=== PATIENT | female | born 1980 | race Caucasian/White ===

== ENCOUNTER 2017-01-21 12:01 | Emergency (ER) | payer MEDICAID, SELFPAY | END 2017-01-21 12:22 | disposition home or self-care (01) | PROVIDERS: Emergency Provider Nurse Practitioner Family; Family Provider Pediatrics; Visit Provider Nurse Practitioner Family | DX: K13.0 Diseases of lips (principal); Z79.3 Long term (current) use of hormonal contraceptives ==

== ENCOUNTER → 2017-01-27 | Outpatient (CLI) | payer MEDICAID, SELFPAY | PROVIDERS: Visit Provider Nurse Practitioner Obstetrics & Gynecology | DX: R53.82 Chronic fatigue, unspecified (principal); Z72.51 High risk heterosexual behavior | CPT/HCPCS: 36415; 83001; 83002; 84436; 84443; 84479 ==

== ENCOUNTER → 2017-02-17 15:44 | Outpatient (CLI) | payer MEDICAID, SELFPAY ==
--- NOTE | 2017-02-17 15:50 | MM_ITS ---
MM Dig screening mamm BI w/CAD CAD Screening ORDERING PHYSICIAN : Sathish Love MD PATIENT AGE: 37 years GENDER: Female COMPARISON:.Baseline Mammogram no previous studies INDICATION: 37-year-old. No hormones no new complaints. Next family history. Maternal aunt with breast cancer. TECHNIQUE: Standard CC and MLO images were obtained. R2 CAD reviewed. FINDINGS: [id number] results fibroglandular breast densities towards upper outer quadrant. With relatively mild asymmetry noted. Also seems to dissipate from one view to another with no dominant mass nor suspicious calcifications evident on today's baseline exam. CAD computer review highlights no focal areas of concern either. Bilateral follow-up in one year recommended IMPRESSION: Baseline mammogram with no significant areas of concern Mild baseline asymmetry. . Routine follow-up BI-RADS Category: 1 Negative RECOMMENDED FOLLOW-UP: 1YR - 1 YEAR FOLLOW-UP (A letter has been sent to the patient regarding results of the study.)
== END ==
PROVIDERS: Family Provider Pediatrics; PCP Pediatrics; Visit Provider Nurse Practitioner Obstetrics & Gynecology
DX: Z12.31 Encounter for screening mammogram for malignant neoplasm of breast (principal)
CPT/HCPCS: 77067

== ENCOUNTER 2017-03-02 19:18 | Emergency (ER) | payer MEDICAID, SELFPAY ==
[2017-03-02 19:19] VITALS: BP 142/93; PULSE 86; RESP 16; O2SAT 100
[2017-03-02 19:39] VITALS: BP 131/94; PULSE 107; RESP 16; TEMP 37.1; O2SAT 99; BMI 27.4
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
== END 2017-03-02 21:39 | disposition home or self-care (01) ==
PROVIDERS: Emergency Provider General Practice; Family Provider Pediatrics; PCP Pediatrics
DX: T25.022A Burn of unspecified degree of left foot, initial encounter (principal); T25.021A Burn of unspecified degree of right foot, initial encounter; T21.02XA Burn of unspecified degree of abdominal wall, initial encounter; X12.XXXA Contact with other hot fluids, initial encounter; Y93.9 Activity, unspecified; Y92.9 Unspecified place or not applicable; F17.210 Nicotine dependence, cigarettes, uncomplicated
CPT/HCPCS: 99282

== ENCOUNTER → 2017-03-30 17:17 | Outpatient (REF) | payer MEDICAID, SELFPAY | LOC: LAB 17:17 | PROVIDERS: Visit Provider Pediatrics | DX: S91.302A Unspecified open wound, left foot, initial encounter (principal) | CPT/HCPCS: 87070; 87077; 87186; 87205 ==

== ENCOUNTER 2017-04-15 13:30 | Outpatient (RCR) | payer MEDICAID, SELFPAY | END 2017-04-15 13:31 | disposition home or self-care (01) | LOC: PT 13:30 | PROVIDERS: Family Provider Pediatrics; PCP Pediatrics; Visit Provider Pediatrics | DX: S91.302A Unspecified open wound, left foot, initial encounter (principal) | CPT/HCPCS: 97162; 97597 ==

== ENCOUNTER 2017-05-17 20:50 | Emergency (ER) | payer MEDICAID, SELFPAY ==
[2017-05-17 21:03] VITALS: BP 142/105; PULSE 118; RESP 20; TEMP 36.6; O2SAT 98; BMI 28.3
--- NOTE | 2017-05-17 21:13 | XR_ITS ---
EXAM: XR lumbar spine min 4V HISTORY: Low back pain ITS.REASON: pain ORDERING PHYSICIAN: Pradip Sherman MD PATIENT AGE: 37 years COMPARISON: None FINDINGS: Normal alignment. No fracture or dislocation. No lytic or blastic change. No significant degenerative change. The disc spaces are preserved. IMPRESSION: No acute finding
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
[2017-05-17 22:47] LABS: Microscopic, Urine URINE MICROSCOPIC (MICROSCOPIC)
[2017-05-17 23:10] LABS: Amphetamine/Metha Screen,Urine Negative ng/mL (<1000); Barbiturates Screen,Urine Negative ng/mL (<200); Benzodiazepines Screen,Urine Positive ng/mL (200); Cannabinoid Screen,Urine Positive ng/mL (<50); Cocaine Screen,Urine Negative ng/g (<300); Methadone Screen,Urine Positive ng/mL (<300); Opiate Screen,Urine Positive ng/mL (<300); Phencyclidine Screen,Urine Negative ng/mL (<25)
[2017-05-17 23:23] LABS: Appearance,Urine SL CLOUDY (Clear); Blood, Urine Negative (Negative); Color,Urine YELLOW (Yellow); Glucose,Urine (UA) Negative (Negative); Ketones,Urine Negative (Negative); Leukocyte Esterase,Urine Negative (Negative); Nitrate,Urine POSITIVE (Negative); PH,Urine 5.5 (5.0-8.5); Protein,Urine TRACE (Negative); Specific Gravity, Urine >= 1.030 (1.005-1.030); Urobilinogen,Urine 0.2 EU/dl (0.2)
[2017-05-17 23:30] LABS: Bilirubin,Urine Negative (Negative); Squamous Epithelial Cell,Urine 20-50 #/hpf (0-5)
[2017-05-17 23:31] VITALS: BP 134/96; PULSE 85; RESP 18; TEMP 37; O2SAT 96
[2017-05-17 23:31] LABS: Bacteria,Urine Trace /lpf
== END 2017-05-17 23:32 | disposition home or self-care (01) ==
PROVIDERS: Emergency Provider Emergency Medicine; Family Provider Pediatrics; PCP Pediatrics
DX: M54.5 Low back pain (principal); J45.909 Unspecified asthma, uncomplicated; F17.210 Nicotine dependence, cigarettes, uncomplicated
CPT/HCPCS: 72110; 80305; 81001; 96372; 99282; J0595

== ENCOUNTER 2020-05-29 13:25 | Emergency (ER) | payer MEDICAID, SELFPAY ==
[2020-05-29 13:49] VITALS: BP 121/51; PULSE 80; RESP 14; TEMP 37.3; O2SAT 98; BMI 22.4
--- NOTE | 2020-05-29 13:59 | HMH.EDUTC ---
[facility] [place] Impression: Nasal vestibulitis Disposition: Home, Self-Care Condition on Discharge: Good Instructions: DI for Nasal Congestion Additional Instructions: Take the medication as directed. Apply the mupirocin (bactroban) ointment as directed. Follow up with your primary care doctor. You may need to be seen by an ENT doctor, so I put in a referral to Dr. Verduzco. If you're not getting better then call his office and schedule an appointment. GO TO THE ER FOR ANY WORSENING SYMPTOMS OR CONCERNS Prescriptions: Sulfamethoxazole/Trimethoprim [Bactrim DS tablet] 1 each PO BID 10 Days #20 tab Transmission Status: Received by [id number] Mupirocin [Bactroban 2% Ointment 22gm tube] 1 applicatio TP TID 7 Days #1 tube Transmission Status: Received by [id number] Referrals: PCP,No [Primary Care Provider] - Richard Verduzco MD [Staff Physician] - Time of Disposition: 14:11 Medical Decision Making - Medical Records Medical records reviewed: No: I reviewed the patient's medical records. - Bobo Inquiry Pt receiving controlled substance: No Vital Signs: 05/29/20 13:49 05/29/20 14:19 Temperature 99.1 F 99.1 F Temperature Source Tympanic Oral Pulse Rate 80 Pulse Rate [Right Brachial] 80 Respiratory Rate 14 14 Blood Pressure 121/51 L Blood Pressure [Right Arm] 121/51 L Blood Pressure Mean [Right Arm] 74 Blood Pressure Source Automatic Cuff Blood Pressure Source [Right Arm] Automatic Cuff Blood Pressure Position Sitting Blood Pressure Position [Right Arm] Sitting 02 Sat by Pulse Oximetry 98 Oxygen Delivery Method Room Air Room Air Orders (Tests/Meds): ORDERS Category Date Time Status Wound Culture and Gram Stain Stat Micro 05/29/20 14:15 Results [facility] [place] - General Stated complaint: infection in right nostril Time Seen by Provider: 05/29/20 13:50 Mode of Arrival: Ambulatory Source of Information: Patient Limitations: No Limitations Description of Symptoms (Recalled from Triage Doc. by RN): right nostril has been oozing for 3 days. Pt states she may have an abcess. HEENT Symptoms (Recalled from RN notes): Yes Resp Symptoms (Recalled from RN notes): No Skin Symptoms (Recalled from RN notes): No MS Symptoms (Recalled from RN notes): No Functional Status (Recalled from RN notes): wnl - History of Present Illness Provider Complaint: She states that she has 2 sores in her right nare. They have been present for the past 3 days. She states that they are very painful to touch. She denies any injury. - Related Data Home Medications Medication Instructions Recorded Confirmed albuterol sulfate 90 mcg/actuation 90 mcg INHALATION ONCE 03/09/17 05/17/17 breath activated powder inhaler gabapentin 300 mg capsule 300 mg PO QID cap 03/09/17 05/17/17 loratadine 10 mg tablet 10 mg PO QDAY 03/09/17 05/17/17 meloxicam 7.5 mg tablet 7.5 mg PO QDAY 03/09/17 05/17/17 ibuprofen 200 mg tablet 200 mg PO ONCE tab 05/29/17 Previous Rx's Medication Instructions Recorded Mupirocin Calcium [Mupirocin 2% 1 applicatio TP TID #1 tube 12/12/17 Cream 15gm] clindamycin HCL [Clindamycin HCl 300 mg PO QID #28 capsule 12/12/17 300mg Cap] Mupirocin [Bactroban 2% Ointment 1 applicatio TP TID 7 Days #1 tube 05/29/20 22gm tube] Sulfamethoxazole/Trimethoprim 1 each PO BID 10 Days #20 tab 05/29/20 [Bactrim DS tablet] Allergies Allergy/AdvReac Type Severity Reaction Status Date / Time tramadol [TRAMADOL] Allergy Unknown Verified 07/02/17 10:55 [email or web address] [From CHANTIX] Allergy Unknown Verified 07/02/17 10:55 - Worker's Comp Is this a Worker's Comp case?: No H History - Hepatitis A Screen Drug use history?: No High risk sexual behaviors?: No History of sexually transmitted infection?: No Currently employed?: No Childcare worker?: No Do you have indoor plumbing?: Yes Do you have electricity?: Yes Attestation statement:: This
[2020-05-29 14:19] VITALS: BP 121/51; PULSE 80; RESP 14; TEMP 37.3; O2SAT 98
== END 2020-05-29 14:20 | disposition home or self-care (01) ==
PROVIDERS: Emergency Provider Nurse Practitioner Family
DX: J34.89 Other specified disorders of nose and nasal sinuses (principal); F17.210 Nicotine dependence, cigarettes, uncomplicated
CPT/HCPCS: 87070; 87077; 87186; 87205; 99202; G0463